=== PATIENT | female | born 1980 | race Caucasian/White ===

== ENCOUNTER 2024-02-28 06:38 | Day surgery (SDC) | payer OTHER ==
[2024-02-28 06:50] LABS: HCG URINE TEST NEGATIVE (NEGATIVE)
[2024-02-28] MEDS: CEFAZOLIN 2 GM/100 ML NaCl 2 GM/100 ML IVPB IV SCH (06:50)
[2024-02-28] MEDS: Lactated Ringers 1,000 ML IV SCH (06:50)
[2024-02-28 07:07] VITALS: RESP 18
[2024-02-28 08:39] LABS: ANION GAP 11.8 MEQ/L (5-15); Calcium 8.9 mg/dL (8.4-10.2); Creatinine 1 0.85 mg/dL (0.52-1.04); EST GLOMERULAR FILTRATION RATE 88.2 ML/MIN; Potassium 4.2 mmol/L (3.5-5.1)
[2024-02-28] MEDS ORDERED: DIPRIVAN 200 MG/20 ML IV ONE (09:03)
[2024-02-28] MEDS ORDERED: Decadron 4 MG INJ ONE (09:03)
[2024-02-28] MEDS ORDERED: Zofran 4 MG/2 ML VIAL ONE (09:03)
[2024-02-28] MEDS ORDERED: TORAdol 30 mg Injection ONE (09:03)
[2024-02-28] MEDS ORDERED: SUBLIMAZE 100 MCG/2 ML ONE (09:19)
[2024-02-28] MEDS ORDERED: Hydromorphone 1 mg/ml Injection ONE (09:42)
[2024-02-28 10:15] VITALS: TEMP 97.6; O2SAT 98
[2024-02-28 10:24] VITALS: BP 133/87; PULSE 87
--- NOTE | 2024-03-01 13:32 | OP ---
SURGERY DATE/TIME: 02/28/2024 4288 - [id number] PREOPERATIVE DIAGNOSIS: Abnormal uterine bleeding with failed medical management. POSTOPERATIVE DIAGNOSIS: Abnormal uterine bleeding with failed medical management. PROCEDURE: Hysteroscopy, dilation and curettage with NovaSure ablation. SURGEON: Candido Richard DO. [employer] ATTENDANT: Stephanie Del Toro. ANESTHESIA: General. ESTIMATED BLOOD LOSS: Minimal. COMPLICATIONS: None. FINDINGS: The risks, benefits, indications, and alternatives of the procedure were reviewed with the patient prior to the procedure. Patient understood the risks of infection, bleeding, bowel injury, bladder injury, uterine perforation, pelvic infection, thromboembolic disorder associated with the surgery and desired to have the surgery as a possible means to alleviate her current medical condition. DESCRIPTION OF PROCEDURE AND FINDINGS: At this point, patient was taken to the operating room, given general sedation, placed in the dorsal lithotomy position, prepped and draped in the usual sterile fashion. A weighted speculum was then placed in the patient's vagina, and the anterior lip of the cervix was grasped with a single-tooth tenaculum. Endocervical dilators were advanced through the endocervical region as a means to dilate the cervix, and at this point a 5 mm hysteroscope was then placed in through the endocervical region toward the fundal region where visualization appeared to be within normal limits and no gross abnormalities were located within the uterine cavity. From this point, the hysteroscope was removed and a curette was then placed into the fundus of the uterus and curettage was performed in all quadrants of the uterus, returning a moderate amount of tissue. At this point, hemostasis was obtained. From this point, the NovaSure instrument was then taken through the endocervical region toward the fundal region, retracted approximately 1 cm, and was engaged with a length of 6.5 cm and a width of 4.6 cm. After engagement, the machine was turned on with an ablative time of 36 seconds. After complete ablation, the instrument was disengaged and removed from the uterine cavity without complication. From this point, all instruments were removed from the patient's vaginal region. The patient was then taken out of the dorsal lithotomy position, was taken out of anesthesia, and was then taken to the recovery room in stable condition. At this point, all instruments were accounted for x2.
== END 2024-02-28 10:23 | disposition home or self-care (01) ==
LOC: SDC 06:38
PROVIDERS: ATTEND Obstetrics & Gynecology
DX: N93.9 Abnormal uterine and vaginal bleeding, unspecified (principal)
CPT/HCPCS: 36415; 80048; 81025; 93005; J0690; J1100; J1170; J1885; J2405; J2704; J3010